=== PATIENT | male | born 1945 | race Caucasian/White ===

== ENCOUNTER 2018-12-27 09:04 | Outpatient (CLI) | payer MEDICARE ==
--- NOTE | 2018-12-27 10:35 | MRI ---
MRI RIGHT SHOULDER PERFORMED WITHOUT CONTRAST ENHANCEMENT: History: Chronic rotator cuff pain. 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 The humeral head is high riding. This is associated with a massive rotator cuff tear involving the en tirety of the supra and infraspinatus tendons. The tendons are retracted by approximately 3.8 cm. The AP dimension of the tear is greater than 4 cm. There is an area of delamination of the subscapularis tendon and appearance of an actual defect along the undersurface of the midportion of the subscapula ris tendon. The biceps tendon is not within the bicipital groove. It is medially displaced. A portion of it appears to lie within the substance of the subscapularis tendon. Distally there is marked teno synovitis change and the tendon begins to approach the region of the bicipital groove. There is mild infraspinatus muscle atrophy. There are edema changes which extend into the infraspinat us muscle. There are arthritic changes of the glenohumeral joint space. The superior labrum at the biceps anchor is very irregular in appearance. The inferior glenohumeral ligament is intact. IMPRESSION: 1. Massive rotator cuff tear involving the entirety of the supra and infraspinatus tendons. Also a de laminating tear involving the subscapularis tendon as described above. 2. 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 POS: OFF
== END 2018-12-27 09:05 | disposition home or self-care (01) ==
LOC: SCSMRI 09:04
PROVIDERS: ATTEND Family Medicine
DX: M67.813 Other specified disorders of tendon, right shoulder (principal); M75.101 Unspecified rotator cuff tear or rupture of right shoulder, not specified as traumatic; M19.011 Primary osteoarthritis, right shoulder